=== PATIENT | male | born 1975 | race Hispanic/Latino ===

== ENCOUNTER → 2018-02-17 | Outpatient (CLI) | payer OTHER | END | disposition home or self-care (01) | LOC: RAH 09:55 | PROVIDERS: ATTEND Internal Medicine Hematology & Oncology | DX: C7A.093 Malignant carcinoid tumor of the kidney (principal); E34.0 Carcinoid syndrome | CPT/HCPCS: 78306; A9503 ==

== ENCOUNTER → 2018-04-26 | Outpatient (CLI) | payer OTHER | END | disposition home or self-care (01) | LOC: SHCH 08:00 | PROVIDERS: ATTEND Internal Medicine Cardiovascular Disease | DX: I31.3 Pericardial effusion (noninflammatory) (principal); I51.7 Cardiomegaly | CPT/HCPCS: 93306 ==